=== PATIENT | male | born 1985 | race Hispanic/Latino ===

== ENCOUNTER 2019-04-08 13:21 | Emergency (ER) | payer SELFPAY ==
[2019-04-08 13:36] VITALS: BP 131/86
--- NOTE | 2019-04-08 14:17 | Emergency Department Report ---
Minor Respiratory - HPI Chief Complaint: Sore Throat Stated Complaint: THROAT PAIN/KINGA Time Seen by Provider: 04/08/19 14:08 Duration: 3 Days Pain Location: Throat Severity: mild Minor Respiratory: Yes Rhinorrhea, Yes Sore Throat, Yes Able to Tolerate Fluids, No Ear Pain, No Cough, No Sick Contacts, No Hemoptysis, No Chest Pain, No Shortness of Breath, No Fever Other History: Mr. Montaño is 33 yo male with hx of seaesonal allergies and hepatitis C who presents with sore throat and swollen lymph node on right. Has been claritin for one year without relief. Has had nasal congestion. Sore throat for a few days. ED Review of Systems ROS: Stated complaint: THROAT PAIN/KINGA Other details as noted in HPI Constitutional: denies: fever, malaise ENT: throat pain, congestion Respiratory: denies: cough, shortness of breath Cardiovascular: denies: as per HPI ED Past Medical Hx - Past Medical History Previous Medical History?: Yes Additional medical history: Hep C - Surgical History Past Surgical History?: No - Social History Smoking Status: Never Smoker Substance Use Type: None - Medications Home Medications: Home Medications Medication Instructions Recorded Confirmed Last Taken Type Amoxicillin [Amoxicillin TAB] 875 mg PO BID 10 Days #20 tablet 04/08/19 Unknown Rx Fluticasone [Flonase] 1 spray NS QDAY 30 Days #1 bottle 04/08/19 Unknown Rx Minor Respiratory Exam - Exam General: Vital signs noted. No distress. Alert and acting appropriately. HEENT: Yes Pharyngeal Erythema (slightly edematous), Yes Moist Mucous Membranes, Yes Rhinorrhea, No Pharyngeal Exudates, No Conjuctival Injection Neck: Yes Adenopathy, Yes Supple Lungs: Yes Good Air Exchange, No Wheezes, No Ronchi, No Stridor, No Cough, No Labored Respirations, No Retractions, No Use of Accessory Muscles, No Other Abnormal Lung Sounds Heart: Yes Regular, No Murmur Abdomen: Yes Normal Bowel Sounds, No Tenderness, No Peritoneal Signs Skin: No Rash, No Edema Neurologic: Alert and oriented, no deficits. Musculoskeletal: Unremarkable. ED Course Vital Signs 04/08/19 13:34 Temperature 98.1 F Pulse Rate 98 H Respiratory 16 Rate Blood Pressure 131/86 O2 Sat by Pulse 98 Oximetry ED Medical Decision Making - Medical Decision Making Acute pharyngitis, differential diagnosis includes viral viral versus bacterial infection versus complication of seasonal allergies. Prescriptions: Amoxicillin and Flonase. Critical care attestation.: If time is entered above; I have spent that time in minutes in the direct care of this critically ill patient, excluding procedure time. ED Disposition Clinical Impression: Acute pharyngitis Disposition: DC- TO HOME OR SELFCARE Is pt being admited?: No Does the pt Need Aspirin: No Condition: Stable Instructions: Pharyngitis (ED) Prescriptions: Amoxicillin [Amoxicillin TAB] 875 mg PO BID 10 Days #20 tablet Fluticasone [Flonase] 1 spray NS QDAY 30 Days #1 bottle Referrals: [facility] [Outside] - 3-5 Days
== END 2019-04-08 14:40 | disposition home or self-care (01) ==
LOC: ED 13:21
DX: J02.9 Acute pharyngitis, unspecified (principal); Z86.19 Personal history of other infectious and parasitic diseases

== ENCOUNTER 2019-04-17 22:33 | Emergency (ER) | payer OTHER ==
--- NOTE | 2019-04-17 22:41 | Emergency Department Report ---
Blank Doc - Documentation Documentation: This is a 33-year-old male that presents with abdominal pain and blood in stool. Also stated has upper back pain from heavy lifting at work. This initial assessment/diagnostic orders/clinical plan/treatment(s) is/are subject to change based on patient's health status, clinical progression and re- assessment by fellow clinical providers in the ED. Further treatment and workup at subsequent clinical providers discretion. Patient/guardians urged not to elope from the ED as their condition may be serious if not clinically assessed and managed. Initial orders include: 1- Patient sent to [facility] for further evaluation and treatment 2- labs 3- UA
[2019-04-17 23:05] LABS: Basophils # (Auto) 0.1 K/mm3 (0.0-0.1); Basophils % (Auto) 1.4 % (0.0-1.8); Eosinophils % (Auto) 0.1 % (0.0-4.3); Hematocrit 40.8 % (35.5-45.6); Hemoglobin 14.2 gm/dl (11.8-15.2); Lymphocytes # (Auto) 0.6 K/mm3 (1.2-5.4); Lymphocytes % (Auto) 10.7 % (13.4-35.0); Mean Corpuscular HGB Conc 35 % (32-34); Mean Corpuscular Volume 89 fl (84-94); Monocytes # (Auto) 0.6 K/mm3 (0.0-0.8); Monocytes % (Auto) 11.3 % (0.0-7.3); Platelet Count 210 K/mm3 (140-440); Red Cell Distribution Width 13.3 % (13.2-15.2)
[2019-04-17 23:23] LABS: Alanine Aminotransferase 47 units/L (7-56); Albumin 4.3 g/dL (3.9-5); BUN/Creatinine Ratio 14; Blood Urea Nitrogen 13 mg/dL (9-20); Calcium 8.9 mg/dL (8.4-10.2); Hemolysis Index 23
[2019-04-18 00:39] LABS: Bilirubin,Urine NEG (Negative); Blood,Urine SM (Negative); Color,Urine Straw (Yellow); Protein,Urine <15 mg/dL mg/dL (Negative); Urobilinogen,Urine < 2.0 mg/dL (<2.0); WBC,Urine < 1.0 /HPF (0.0-6.0)
[2019-04-18] MEDS ORDERED: ZOFRAN IV ONE (01:00)
[2019-04-18] MEDS ORDERED: MORPHINE IV ONE (01:00)
[2019-04-18] MEDS ORDERED: NACL 0.9% 1000 ML 2,000 ML IV ONE (01:00)
[2019-04-18] MEDS ORDERED: TYLENOL PO ONE (01:01)
--- NOTE | 2019-04-18 01:02 | Emergency Department Report ---
ED General Adult HPI - General Chief complaint: GI Bleed Stated complaint: BACK PAIN/RECTAL BLEEDING Time Seen by Provider: 04/17/19 22:39 Source: patient, RN notes reviewed, old records reviewed Mode of arrival: Ambulatory Limitations: No Limitations - History of Present Illness Initial comments: This is a 34-year-old gentleman. The patient is not known to this provider previously. The patient does not have a local primary care doctor. He denies c hronic medical conditions. Patient was reportedly incarcerated, and reports being released from incarceration a few weeks ago. He reports shortly after that, he had a a few high risk unprotected sexual encounters, reportedly with males and females. He presented approximately 10 days ago for presumed pharyngitis, and was treated empirically. He denies intravenous drug use. Today, the patient presents to the emergency room with a number of complaints. He complains of nontraumatic posterior mid thoracic pain that radiates around to the front. He does not have chest pain. He also describes nontraumatic left posterior thoracic pain. He also describes upper back pain. He also complains of fever, and bright red blood per rectum. He makes no complaint of headache, neck pain, shortness of breath, syncope, ocular discharge, arthritis, dysuria. He has no dyschezia. He requests to be evaluated for HIV. A rectal bleeding started today, it is constant, it is painless, it does not radiate anywhere, he does not have exacerbating or relieving factors. Thoracic pain started today, radiates to the front, increases with palpation and it decreases with rest. Described as sharp, aching, throbbing in nature. -: Gradual Location: back Radiation: abdomen, other Quality: other Consistency: other Improves with: other Worsens with: other Associated Symptoms: other - Related Data Previous Rx's Medication Instructions Recorded Last Taken Type Amoxicillin [Amoxicillin TAB] 875 mg PO BID 10 Days #20 tablet 04/08/19 Unknown Rx Fluticasone [Flonase] 1 spray NS QDAY 30 Days #1 bottle 04/08/19 Unknown Rx Acetaminophen [Non-Aspirin Extra 500 mg PO Q6HR PRN #30 tablet 04/18/19 Unknown Rx Strength] Ciprofloxacin HCl [Ciprofloxacin 500 mg PO Q12HR #12 tab 04/18/19 Unknown Rx TAB] Metoclopramide [Reglan] 10 mg PO QID PRN #30 tablet 04/18/19 Unknown Rx metroNIDAZOLE [Flagyl] 500 mg PO Q12HR #18 tab 04/18/19 Unknown Rx Allergies Allergy/AdvReac Type Severity Reaction Status Date / Time No Known Allergies Allergy Verified 04/18/19 04:30 ED Review of Systems ROS: Stated complaint: BACK PAIN/RECTAL BLEEDING Other details as noted in HPI Constitutional: fever, malaise. denies: weakness Eyes: denies: eye discharge ENT: denies: congestion Respiratory: denies: shortness of breath Cardiovascular: denies: chest pain, palpitations Gastrointestinal: abdominal pain, hematochezia. denies: hematemesis, melena Genitourinary: denies: dysuria Musculoskeletal: back pain Skin: denies: lesions Neurological: weakness Psychiatric: anxiety ED Past Medical Hx - Past Medical History Previous Medical History?: Yes Additional medical history: Hep C - Surgical History Past Surgical History?: No - Social History Smoking Status: Never Smoker Substance Use Type: None - Medications Home Medications: Home Medications Medication Instructions Recorded Confirmed Last Taken Type Amoxicillin [Amoxicillin TAB] 875 mg PO BID 10 Days #20 tablet 04/08/19 Unknown Rx Fluticasone [Flonase] 1 spray NS QDAY 30 Days #1 bottle 04/08/19 Unknown Rx Acetaminophen [Non-Aspirin Extra 500 mg PO Q6HR PRN #30 tablet 04/18/19 Unknown Rx Strength] Ciprofloxacin HCl [Ciprofloxacin 500 mg PO Q12HR #12 tab 04/18/19 Unknown Rx TAB] Metoclopramide [Reglan] 10 mg PO QID PRN #30 tablet 04/18/19 Unknown Rx metroNIDAZOLE [Flagyl] 500 mg PO Q12HR #18 tab 04/18/19 Unknown Rx ED Physical Exam - General Limitations: No Limitations General appearance: alert, anxious - Head Head exam: Present: atraumatic, normocephalic - Eye Eye exam: Present: normal appearance, EOMI. Absent: nystagmus - ENT ENT exam: Present: normal exam, normal orophraynx, mucous membranes moist, normal external ear exam, other (patient speaking in full sentences. There is no stridor or dysphonia.) - Neck Neck exam: Present: normal inspection, full ROM. Absent: tenderness, meningismus - Respiratory Respiratory exam: Present: normal lung sounds bilaterally. Absent: respiratory distress, wheezes, rales, rhonchi, stridor, chest wall tenderness - Cardiovascular Cardiovascular Exam: Present: normal rhythm, tachycardia, normal heart sounds. Absent: systolic murmur, diastolic murmur, rubs, gallop - GI/Abdominal GI/Abdominal exam: Present: soft, tenderness, other (there is epigastric t enderness. There is no rebound, guarding or peritoneal signs.). Absent: distended, guarding, rebound, rigid, pulsatile mass - Rectal Rectal exam: Present: normal inspection, normal rectal tone, bloody stool, other (chaperoned by nurse Liyah Bueno) - exam: Present: normal inspection, other (chaperoned by nurse Liyah Bueno) External exam: Present: normal external exam - Extremities Exam Extremities exam: Present: normal inspection, full ROM, other (2+ pulses noted in the bilateral upper, lower extremities. Compartments soft. No long bony tenderness. The pelvis is stable.). Absent: tenderness, pedal edema, joint swelling, calf tenderness - Back Exam Back exam: Present: normal inspection, full ROM. Absent: tenderness, CVA tenderness (R), CVA tenderness (L), paraspinal tenderness, vertebral tenderness - Neurological Exam Neurological exam: Present: alert, oriented X3, other (Extraocular movements intact. Tongue midline. No facial droop. Facial sensation intact to light touch in the V1, V2, V3 distribution bilaterally. 5 and 5 strength in 4 extrem ities.. Sensation is intact to light touch in 4 extremities.). Absent: motor sensory deficit - Psychiatric Psychiatric exam: Present: anxious - Skin Skin exam: Present: warm, dry, intact, normal color. Absent: rash ED Course Vital Signs 04/17/19 04/18/19 04/18/19 22:43 01:00 01:31 Temperature 100.3 F H Pulse Rate 122 H Respiratory 18 Rate Blood Pressure 133/95 131/88 141/81 Blood Pressure [Left] O2 Sat by Pulse 99 99 98 Oximetry 04/18/19 04/18/19 04/18/19 01:48 02:13 02:31 Temperature 102.7 F H Pulse Rate 105 H 99 H 102 H Respiratory 18 16 22 Rate Blood Pressure 129/88 129/88 Blood Pressure 131/88 [Left] O2 Sat by Pulse 99 96 98 Oximetry 04/18/19 04/18/19 04/18/19 02:45 03:00 03:31 Temperature 100.1 F H Pulse Rate 95 H 95 H Respiratory 18 17 Rate Blood Pressure 118/74 118/74 Blood Pressure [Left] O2 Sat by Pulse 97 97 Oximetry 04/18/19 04/18/19 04/18/19 04:00 04:21 04:31 Temperature 98.8 F Pulse Rate 83 81 Respiratory 18 16 Rate Blood Pressure 112/62 112/62 Blood Pressure [Left] O2 Sat by Pulse 99 98 Oximetry 04/18/19 05:00 Temperature Pulse Rate 82 Respiratory 18 Rate Blood Pressure 109/67 Blood Pressure [Left] O2 Sat by Pulse 99 Oximetry - Reevaluation(s) Reevaluation #1: 04/18/19 02:03 Differential diagnosis, including not limited to: Pneumonia, tuberculosis, pulmonary embolus, colitis, diverticulitis, proctitis, acute HIV syndrome Assessment and plan: 33-year-old gentleman with fever, tachycardia, back pain that radiates to the front, high risk sexual encounters. He requests screening for HIV. He has provided informed consent for HIV screening. I think tuberculosis is unlikely. However, given that he complains of posterior thoracic pain, lateral thoracic pain, epigastric abdominal pain, is tachycardic and febrile, we will obtain CT scan of the chest, abdomen, pelvis. Rectal exam demonstrates blood, however, it is only in trace amounts. We will treat the patient's symptoms. We will reassess once his data points have resulted. 04/18/19 02:05 At this point do not clinically suspect gonococcal pharyngitis or proctitis based on exam as there are no exudates or discharge, but rectal and pharyngeal cultures were sent nevertheless. Extensive discussion had with patient regarding importance of safe sex practices, and benefits of pre-exposure prophylaxis, which he may pursue with an outpatient primary care physician. Reevaluation #2: 04/18/19 04:28 The patient is reassessed. The patient has been in the ER for around 6 hours. He is markedly improved. Tachycardia resolved. Fever resolved. No rectal bleeding while here in the emergency department. CT scan of the chest negative for acute disease. CT scan of the abdomen pelvis negative for acute disease. Patiently covered empirically with ceftriaxone and azithromycin. Extensive discussion had with patient regarding need for outpatient follow-up. We will start him on empiric ciprofloxacin, Flagyl, discharged with pain medication, nausea medication, instructions to follow up with outpatient primary care, health Department, and gastroenterology. The patient is suitable for a trial of oral outpatient antibiotic management at this point in time. ED Medical Decision Making - Lab Data Result diagrams: 04/17/19 22:54 04/17/19 22:54 Vital Signs 04/17/19 04/18/19 22:43 01:48 Temperature 100.3 F H 102.7 F H Pulse Rate 122 H 105 H Respiratory 18 18 Rate Blood Pressure 133/95 Blood Pressure 131/88 [Left] O2 Sat by Pulse 99 99 Oximetry Lab Results 04/17/19 04/17/19 04/17/19 Range/Units 22:54 22:54 22:54 WBC 5.6 (4.5-11.0) K/mm3 RBC 4.60 (3.65-5.03) M/mm3 Hgb 14.2 (11.8-15.2) gm/dl Hct 40.8 (35.5-45.6) % MCV 89 (84-94) fl MCH 31 (28-32) pg MCHC 35 H (32-34) % RDW 13.3 (13.2-15.2) % Plt Count 210 (140-440) K/mm3 Lymph % (Auto) 10.7 L (13.4-35.0) % Hale % (Auto) 11.3 H (0.0-7.3) % Eos % (Auto) 0.1 (0.0-4.3) % Baso % (Auto) 1.4 (0.0-1.8) % Lymph # 0.6 L (1.2-5.4) K/mm3 Hale # 0.6 (0.0-0.8) K/mm3 Eos # 0.0 (0.0-0.4) K/mm3 Baso # 0.1 (0.0-0.1) K/mm3 Seg Neutrophils % 76.5 H (40.0-70.0) % Seg Neutrophils # 4.3 (1.8-7.7) K/mm3 Sodium 133 L (137-145) mmol/L Potassium 4.0 (3.6-5.0) mmol/L Chloride 92.8 L (98-107) mmol/L Carbon Dioxide 28 (22-30) mmol/L Anion Gap 16 mmol/L BUN 13 (9-20) mg/dL Creatinine 0.9 (0.8-1.5) mg/dL Estimated GFR > 60 ml/min BUN/Creatinine Ratio 14 % Glucose 106 H (75-100) mg/dL Lactic Acid 1.30 (0.7-2.0) mmol/L Calcium 8.9 (8.4-10.2) mg/dL Total Bilirubin 0.20 (0.1-1.2) mg/dL AST 40 (5-40) units/L ALT 47 (7-56) units/L Alkaline Phosphatase 90 (35-129) units/L Total Protein 7.5 (6.3-8.2) g/dL Albumin 4.3 (3.9-5) g/dL Albumin/Globulin Ratio 1.3 % Lipase 40 (13-60) units/L Urine Color (Yellow) Urine Turbidity (Clear) Urine pH (5.0-7.0) Ur Specific [place] (1.003-1.030) Urine Protein (Negative) mg/dL Urine Glucose (UA) (Negative) mg/dL Urine Ketones (Negative) mg/dL Urine Blood (Negative) Urine Nitrite (Negative) Urine Bilirubin (Negative) Urine Urobilinogen (<2.0) mg/dL Ur Leukocyte Esterase (Negative) Urine WBC (Auto) (0.0-6.0) /HPF Urine RBC (Auto) (0.0-6.0) /HPF 04/17/19 Range/Units 23:30 WBC (4.5-11.0) K/mm3 RBC (3.65-5.03) M/mm3 Hgb (11.8-15.2) gm/dl Hct (35.5-45.6) % MCV (84-94) fl MCH (28-32) pg MCHC (32-34) % RDW (13.2-15.2) % Plt Count (140-440) K/mm3 Lymph % (Auto) (13.4-35.0) % Hale % (Auto) (0.0-7.3) % Eos % (Auto) (0.0-4.3) % Baso % (Auto) (0.0-1.8) % Lymph # (1.2-5.4) K/mm3 Hale # (0.0-0.8) K/mm3 Eos # (0.0-0.4) K/mm3 Baso # (0.0-0.1) K/mm3 Seg Neutrophils % (40.0-70.0) % Seg Neutrophils # (1.8-7.7) K/mm3 Sodium (137-145) mmol/L Potassium (3.6-5.0) mmol/L Chloride (98-107) mmol/L Carbon Dioxide (22-30) mmol/L Anion Gap mmol/L BUN (9-20) mg/dL Creatinine (0.8-1.5) mg/dL Estimated GFR ml/min BUN/Creatinine Ratio % Glucose (75-100) mg/dL Lactic Acid (0.7-2.0) mmol/L Calcium (8.4-10.2) mg/dL Total Bilirubin (0.1-1.2) mg/dL AST (5-40) units/L ALT (7-56) units/L Alkaline Phosphatase (35-129) units/L Total Protein (6.3-8.2) g/dL Albumin (3.9-5) g/dL Albumin/Globulin Ratio % Lipase (13-60) units/L Urine Color Straw (Yellow) Urine Turbidity Clear (Clear) Urine pH 6.0 (5.0-7.0) Ur Specific [place] 1.005 (1.003-1.030) Urine Protein <15 mg/dl (Negative) mg/dL Urine Glucose (UA) Neg (Negative) mg/dL Urine Ketones Neg (Negative) mg/dL Urine Blood Sm (Negative) Urine Nitrite Neg (Negative) Urine Bilirubin Neg (Negative) Urine Urobilinogen < 2.0 (<2.0) mg/dL Ur Leukocyte Esterase Neg (Negative) Urine WBC (Auto) < 1.0 (0.0-6.0) /HPF Urine RBC (Auto) 1.0 (0.0-6.0) /HPF - EKG Data -: EKG Interpreted by [place] EKG shows normal: sinus rhythm Rate: tachycardia - EKG Data 04/18/19 02:06 This is a sinus tachycardia, 104 bpm, normal axis, early repolarization, no complaints of chest pain, this is an abnormal EKG, intervals otherwise unremarkable, EKG is not consistent with ST elevation myocardial infarction. - Radiology Data Radiology results: report reviewed, image reviewed CT scan of the chest is negative for acute disease. CT scan of the abdomen and pelvis is negative for acute disease. Critical care attestation.: If time is entered above; I have spent that time in minutes in the direct care of this critically ill patient, excluding procedure time. ED Disposition Clinical Impression: Acute febrile illness, History of rectal bleeding High risk sexual behavior Qualifiers: High risk sexual behavior type: unspecified Qualified Code(s): Z72.51 - High risk heterosexual behavior Disposition: DC- TO HOME OR SELFCARE Is pt being admited?: No Does the pt Need Aspirin: No Condition: Stable Additional Instructions: Cultures were sent today, and results will be available in the next 3-5 days. Have a primary care doctor contact the medical records department to obtain culture results. Please follow-up with a primary care doctor in 3-4 days for repeat checkup/evaluation. Alternatively, the patient may return to this emergency room for repeat checkup/evaluation, or follow up at an urgent care center for repeat checkup/evaluation. Take the pain medication, nausea medication, antibiotic therapy as directed. Do not consume alcohol while taking these medications. Patient will need to follow up with a independent film maker within the next 2 weeks for repeat checkup/evaluation for history of rectal bleeding. Not following up as recommended may result an undiagnosed cancer, tumor, malignancy. Patient will need to follow-up with an outpatient primary care doctor, or the he alth department for repeat STI screening/testing in 4-8 weeks. Make certain to practice safe sexual practices. Always use a condom or barrier protection Please return to the emergency room right away with projectile vomiting, change in mental status, confusion, inability to tolerate liquid feeds, new, worsening or different symptoms not present on the initial emergency room evaluation. [facility] is a local gastroenterology practice. [facility] is a local medical clinic. [facility] is a local medical clinic. Prescriptions: Ciprofloxacin HCl [Ciprofloxacin TAB] 500 mg PO Q12HR #12 tab metroNIDAZOLE [Flagyl] 500 mg PO Q12HR #18 tab Acetaminophen [Non-Aspirin Extra Strength] 500 mg PO Q6HR PRN #30 tablet PRN Reason: Pain , Severe (7-10) Metoclopramide [Reglan] 10 mg PO QID PRN #30 tablet PRN Reason: Nausea Referrals: [facility] [Outside] - 3-5 Days [facility] [Provider Group] - 3-5 Days [facility] [Provider Group] - 3-5 Days [facility] [Provider Group] - 3-5 Days Forms: Accompanied Note
--- NOTE | 2019-04-18 04:08 | Cat Scan Report ---
PROCEDURE: CT ANGIO CHEST TECHNIQUE: Computerized tomographic angiography of the chest was performed after the IV injection of iodinated nonionic contrast including image processing. The image data was postprocessed using 2-di mensional multiplanar reformatted (MPR) and 3-dimensional (MIP and/or volume rendered) techniques. Au tomated exposure control, adjustment of mA and/or kV according to patient size, or iterative reconstr uction dose optimization techniques were utilized. CT DOSE LENGTH PRODUCT: mGycm HISTORY: back pain thoracic pain fever tachy, radiates to f COMPARISONS: None . FINDINGS: Heart and pericardium: Normal. Thoracic aorta: There is no thoracic aortic aneurysm or dissection.. Pulmonary vasculature: There is no pulmonary embolism.. Lymph nodes: No enlarged thoracic lymph nodes. Lungs: Lungs are expanded and clear. There are no infiltrates. Pleural space: No effusion, thickening, or pneumothorax. Musculoskeletal structures: No significant abnormality. Upper abdominal structures: No significant abnormality. IMPRESSION: There is no pulmonary embolism. . This document is electronically signed by Josse Dhaliwal MD., April 18 2019 04:06:58 AM ET
--- NOTE | 2019-04-18 04:13 | Cat Scan Report ---
PROCEDURE: CT ABDOMEN PELVIS W CON TECHNIQUE: Computerized axial tomography of the abdomen and pelvis was performed after the IV inject ion of iodinated nonionic contrast. CT DOSE LENGTH PRODUCT: mGycm HISTORY: abd pain fever rectal bleed COMPARISONS: None . FINDINGS: Visualized lower thorax: No significant abnormality. Liver: Normal size and attenuation. Spleen: Normal size and attenuation. Gallbladder and biliary system: Normal. Pancreas: Normal. Adrenals: Normal. Kidneys: Normal. GI tract: There is no bowel obstruction, colitis or enteritis. The appendix is normal.. Lymph nodes and mesentery: Normal. Vasculature: Normal.. Bladder: Normal. Reproductive organs: Normal. Peritoneum: There is no ascites, free air, abscess or adenopathy.. Musculoskeletal structures: No significant abnormality. Other: None. IMPRESSION: There is no acute intra-abdominal abnormality.. This document is electronically signed by Josse Dhaliwal MD., April 18 2019 04:11:42 AM ET
[2019-04-18] MEDS ORDERED: ZITHROMAX PO ONE (04:25)
[2019-04-18] MEDS ORDERED: ROCEPHIN 250 MG in NACL 0.9% 50 ML IV STA (04:26)
[2019-04-18 05:35] VITALS: BP 109/67
== END 2019-04-18 05:38 | disposition home or self-care (01) ==
LOC: ED 22:33
DX: K62.5 Hemorrhage of anus and rectum (principal); Z72.51 High risk heterosexual behavior
CPT/HCPCS: 36415; 71275; 74177; 80053; 81001; 82140; 82271; 82550; 83690; 83735; 85025; 85379; 87591; 87806; 93005; 93010; 96365; 96375; 99285; J0696; J2270; J2405; J7030; Q9967

== ENCOUNTER 2019-04-21 11:50 | Emergency (ER) | payer OTHER ==
--- NOTE | 2019-04-21 12:37 | Event Note ---
ED Screening Note Date of service: 04/21/19 Time: 12:33 ED Screening Note: 33 y/o male c/o diarrhea with blood abd pain . Was here earlier. This initial assessment/diagnostic orders/clinical plan/treatment(s) is/are subject to change based on patients health status, clinical progression and re- assessment by fellow clinical providers in the ED. Further treatment and workup at subsequent clinical providers discretion. Patient/guardian urged not to elope from the ED as their condition may be serious if not clinically assessed and managed. Initial orders include:
[2019-04-21] MEDS ORDERED: NACL 0.9% 1000 ML 1,000 ML IV ONE (13:24)
[2019-04-21] MEDS ORDERED: ZOFRAN IV ONE (13:24)
[2019-04-21] MEDS ORDERED: MORPHINE IV ONE (13:24)
[2019-04-21 13:43] LABS: Bilirubin,Urine NEG (Negative); Blood,Urine NEG (Negative); Color,Urine Yellow (Yellow); Protein,Urine <15 mg/dL mg/dL (Negative); Urobilinogen,Urine < 2.0 mg/dL (<2.0)
[2019-04-21 13:47] LABS: Basophils % (Auto) 0.8 % (0.0-1.8); Eosinophils % (Auto) 0.5 % (0.0-4.3); Hematocrit 43.1 % (35.5-45.6); Hemoglobin 14.6 gm/dl (11.8-15.2); Lymphocytes # (Auto) 1.5 K/mm3 (1.2-5.4); Lymphocytes % (Auto) 35.7 % (13.4-35.0); Mean Corpuscular HGB Conc 34 % (32-34); Mean Corpuscular Volume 89 fl (84-94); Monocytes # (Auto) 0.6 K/mm3 (0.0-0.8); Monocytes % (Auto) 14.8 % (0.0-7.3); Platelet Count 178 K/mm3 (140-440); Red Blood Count 4.83 M/mm3 (3.65-5.03); Red Cell Distribution Width 13.5 % (13.2-15.2)
[2019-04-21 14:02] LABS: Alanine Aminotransferase 26 units/L (7-56); Albumin 3.8 g/dL (3.9-5); BUN/Creatinine Ratio 6; Blood Urea Nitrogen 5 mg/dL (9-20); Calcium 8.9 mg/dL (8.4-10.2); Hemolysis Index 22
--- NOTE | 2019-04-21 14:32 | Emergency Department Report ---
ED GI Bleed HPI - General Chief complaint: Nausea/Vomiting/Diarrhea Stated complaint: DIARRHEA/FEVER Time Seen by Provider: 04/21/19 13:18 Source: patient Mode of arrival: Ambulatory Limitations: No Limitations - History of Present Illness Initial comments: This is a 33-year-old male nontoxic, well nourished in appearance, no acute signs of distress presents to the ED with c/o of nausea and vomiting and abdominal pain 5 days. Patient also stated has diarrhea with mixed blood. Patient describes vomiting as food content and yellow gastric acid. Patient describes abdominal pain as cramping and aching with level of 3/10 diffuse. Patient denies chest pain, short of breath, fever, chills, headache, stiff neck, numbness or tingling. Patient denies any constipation. Patient denies any recent travels. Patient stated allergies to metoclopramide. Denies significant PMH. Patient also stated that he was seen in the ER 5 days ago but denies fol lowing up with a form setter supervisor. Patient also stated is currently taking Cipro and Flagyl that was prescribed to him during previous visit. -: days(s) (5) Location: diffuse Radiation: none Severity scale (0 -10): 3 Quality: cramping Consistency: constant Improves with: none Worsens with: none Associated Symptoms: abdominal pain, nausea, vomiting. denies: epistaxis, f ever/chills, headaches, loss of appetite, malaise, easy bruising, rash, other bleeding, shortness of breath, syncope, weakness Treatments Prior to Arrival: none - Related Data Previous Rx's Medication Instructions Recorded Last Taken Type Amoxicillin [Amoxicillin TAB] 875 mg PO BID 10 Days #20 tablet 04/08/19 Unknown Rx Fluticasone [Flonase] 1 spray NS QDAY 30 Days #1 bottle 04/08/19 Unknown Rx Acetaminophen [Non-Aspirin Extra 500 mg PO Q6HR PRN #30 tablet 04/18/19 Unknown Rx Strength] Ciprofloxacin HCl [Ciprofloxacin 500 mg PO Q12HR #12 tab 04/18/19 Unknown Rx TAB] Metoclopramide [Reglan] 10 mg PO QID PRN #30 tablet 04/18/19 Unknown Rx metroNIDAZOLE [Flagyl] 500 mg PO Q12HR #18 tab 04/18/19 Unknown Rx Acetaminophen/Codeine [Tylenol 1 tab PO Q6H PRN #12 tab 04/21/19 Unknown Rx /Codeine # 3 tab] Ondansetron [Zofran Odt] 4 mg PO Q8HR PRN #20 tab.rapdis 04/21/19 Unknown Rx Allergies Allergy/AdvReac Type Severity Reaction Status Date / Time metoclopramide [From Reglan] Allergy Unknown Verified 04/21/19 12:26 ED Review of Systems ROS: Stated complaint: DIARRHEA/FEVER Other details as noted in HPI Constitutional: denies: chills, fever Eyes: denies: eye pain, eye discharge, vision change ENT: denies: ear pain, throat pain Respiratory: denies: cough, shortness of breath, wheezing Cardiovascular: denies: chest pain, palpitations Endocrine: no symptoms reported Gastrointestinal: abdominal pain, nausea, vomiting, diarrhea, hematochezia. denies: constipation, hematemesis, melena Genitourinary: denies: urgency, dysuria Musculoskeletal: denies: back pain, joint swelling, arthralgia Skin: denies: rash, lesions Neurological: denies: headache, weakness, paresthesias Psychiatric: denies: anxiety, depression Hematological/Lymphatic: denies: easy bleeding, easy bruising ED Past Medical Hx - Past Medical History Additional medical history: Hep C - Social History Smoking Status: Current Every Day Smoker Substance Use Type: None - Medications Home Medications: Home Medications Medication Instructions Recorded Confirmed Last Taken Type Amoxicillin [Amoxicillin TAB] 875 mg PO BID 10 Days #20 tablet 04/08/19 Unknown Rx Fluticasone [Flonase] 1 spray NS QDAY 30 Days #1 bottle 04/08/19 Unknown Rx Acetaminophen [Non-Aspirin Extra 500 mg PO Q6HR PRN #30 tablet 04/18/19 Unknown Rx Strength] Ciprofloxacin HCl [Ciprofloxacin 500 mg PO Q12HR #12 tab 04/18/19 Unknown Rx TAB] Metoclopramide [Reglan] 10 mg PO QID PRN #30 tablet 04/18/19 Unknown Rx metroNIDAZOLE [Flagyl] 500 mg PO Q12HR #18 tab 04/18/19 Unknown Rx Acetaminophen/Codeine [Tylenol 1 tab PO Q6H PRN #12 tab 04/21/19 Unknown Rx /Codeine # 3 tab] Ondansetron [Zofran Odt] 4 mg PO Q8HR PRN #20 tab.rapdis 04/21/19 Unknown Rx ED Physical Exam - General Limitations: No Limitations General appearance: alert, in no apparent distress - Head Head exam: Present: atraumatic, normocephalic - Eye Eye exam: Present: normal appearance - Neck Neck exam: Present: normal inspection, full ROM. Absent: tenderness, meningismus, lymphadenopathy - Respiratory Respiratory exam: Present: normal lung sounds bilaterally. Absent: respiratory distress, wheezes, rales, rhonchi, stridor, chest wall tenderness, accessory muscle use, decreased breath sounds, prolonged expiratory - Cardiovascular Cardiovascular Exam: Present: regular rate, normal rhythm, normal heart sounds. Absent: bradycardia, tachycardia, irregular rhythm, systolic murmur, diastolic murmur, rubs, gallop - GI/Abdominal GI/Abdominal exam: Present: soft, normal bowel sounds. 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 Absent: black stool, bloody stool, fecal impaction, hemorrhoids, mass, tenderness, prostate tenderness, prostate enlargement - Extremities Exam Extremities exam: Present: normal inspection, full ROM, normal capillary refill. Absent: tenderness - Back Exam Back exam: Present: normal inspection, full ROM. Absent: tenderness, CVA tenderness (R), CVA tenderness (L), muscle spasm, paraspinal tenderness, vertebral tenderness, rash noted - Neurological Exam Neurological exam: Present: alert, oriented X3, normal gait - Psychiatric Psychiatric exam: Present: normal affect, normal mood - Skin Skin exam: Present: warm, dry, intact, normal color. Absent: rash ED Course Vital Signs 04/21/19 04/21/19 04/21/19 12:20 13:40 14:02 Temperature 97.2 F L Pulse Rate 90 Respiratory 18 16 16 Rate Blood Pressure 120/75 Blood Pressure [Left] O2 Sat by Pulse 100 Oximetry 04/21/19 17:35 Temperature 98.6 F Pulse Rate 66 Respiratory 18 Rate Blood Pressure Blood Pressure 102/52 [Left] O2 Sat by Pulse 99 Oximetry - Reevaluation(s) Reevaluation #1: 04/21/19 14:34 Patient is speaking in full sentences with no signs of distress noted. - Consultations Consultation #1: 04/21/19 15:59 Patient has been consulted with Lori Barron about patient history, physical exam, and labs/CT results and agrees to ED plan of care and discharge plan of care. ED Medical Decision Making - Lab Data Result diagrams: 04/21/19 13:29 04/21/19 13:29 - Medical Decision Making This is a 33-year-old male that presents with abdominal pain, nausea vomiting, and blood in stool. Condition stable was examined by me. There was a normal rectal exam noted. Labs obtained and are unremarkable with normal H&H. Urine is unremarkable. CT scan of abdomen has been obtained with contrast and dictated by radiologist within normal limits. Patient is notified of the CT results with her questions noted by the patient. Patient was instructed to continue taking ciprofloxacin and Flagyl Was prescribed in the previous visit. Vital signs are unremarkable. Patient was given strict instructions that he must follow-up with a form setter supervisor for a colonoscopy, as well as Urologist for abnormal CT results. Patient is stable to be discharged at this time. Patient was instructed to Follow-up with a primary care/form setter supervisor doctor in 3-5 days or if symptoms worsen and continue return to emergency room as soon as possible. At time of discharge, the patient does not seem toxic or ill in appearance. No acute signs of distress noted. Patient agrees to discharge treatment plan of care. No further questions noted by the patient. Critical care attestation.: If time is entered above; I have spent that time in minutes in the direct care of this critically ill patient, excluding procedure time. ED Disposition Clinical Impression: Nausea vomiting and diarrhea, Hematochezia Abdominal pain Qualifiers: Abdominal location: generalized Qualified Code(s): R10.84 - Generalized abdominal pain Disposition: -01 TO HOME OR SELFCARE Is pt being admited?: No Does the pt Need Aspirin: No Condition: Stable Instructions: Acute Nausea and Vomiting (ED), Abdominal Pain (ED) Additional Instructions: Follow-up with a primary care/form setter supervisor doctor in 3-5 days or if symptoms worsen and continue return to emergency room as soon as possible. Also, as instructed and directed to you in the ED, follow-up with a Urologist in 3-[address] results. Continue taking antibiotic that was prescribed to you during your previous visit. Prescriptions: Acetaminophen/Codeine [Tylenol /Codeine # 3 tab] 1 tab PO Q6H PRN #12 tab PRN Reason: Pain , Severe (7-10) Ondansetron [Zofran Odt] 4 mg PO Q8HR PRN #20 tab.rapdis PRN Reason: Nausea Referrals: JAUN DURANT MD [Primary Care Provider] - 3-5 Days PRIMARY [facility]ARE, [Referring] - 3-5 Days KSENIA ONOFRE MD [Staff Physician] - 3-5 Days [facility] [Provider Group] - 3-5 Days [facility] [Outside] - 3-5 Days Forms: Work/School Release Form(ED)
--- NOTE | 2019-04-21 15:53 | Cat Scan Report ---
PROCEDURE: CT ABDOMEN PELVIS W CON TECHNIQUE: Computerized axial tomography of the abdomen and pelvis was performed after the IV inject ion of iodinated nonionic contrast. CT DOSE LENGTH PRODUCT: 1558.9 mGycm HISTORY: abd pain with n/v COMPARISONS: Prior CT scan abdomen and pelvis 04/18/2019 . FINDINGS: Lower Lung cortes: Minimal dependent atelectasis otherwise clear. Upper Abdomen: Gallbladder showed no abnormalities. The liver is unremarkable. The adrenal glands, p ancreas and spleen are unremarkable. Kidneys, Ureters and Urinary bladder: Kidneys and ureters show no adenopathy. No renal or ureteral c alculi are seen. There is no hydronephrosis. Urinary bladder is only partially filled. Bladder wall i s prominent. Urinary bladder is incompletely distended. The prominence may be due to lack of distenti on. Cystitis is not entirely excluded. Correlation with urinalysis suggested. Urinary bladder otherwi se is unremarkable. Retroperitoneum: Abdominal aorta appears normal. Nonspecific subcentimeter lymph nodes are seen in the retroperitoneum. No pathologically enlarged ly mph nodes are identified. Bowel: No focal abnormalities are identified. No evidence of bowel obstruction or ascites. There is no free intraperitoneal gas. Normal-appearing appendix is seen in the right lower quadrant. Reproductive organs: Prostate gland does not appear to be enlarged. There is increased density seen in the corpus cavernosum and to a lesser degree corpus spongiosum. Other: No acute bone abnormalities are identified. IMPRESSION: There is abnormal diffuse increased density seen in the corpus cavernosum and to a lesser degree darrius us spongiosum of the penis. Consider thrombosis, atherosclerotic change.. Urology consultation recomm ended. Glover of the urinary bladder appears mildly thickened. This may be due to lack of distention. I canno t exclude cystitis. No other abnormalities are seen. This document is electronically signed by Zaid Beckman MD., April 21 2019 03:51:34 PM ET
[2019-04-21 17:36] VITALS: BP 102/52
== END 2019-04-21 17:58 | disposition home or self-care (01) ==
LOC: ED 11:50
DX: R11.2 Nausea with vomiting, unspecified (principal); K92.1 Melena; F17.200 Nicotine dependence, unspecified, uncomplicated; Z86.19 Personal history of other infectious and parasitic diseases; Z88.5 Allergy status to narcotic agent; Z79.899 Other long term (current) drug therapy
CPT/HCPCS: 36415; 74177; 80053; 81001; 82271; 83690; 85025; 96361; 96374; 96375; 99284; J2270; J2405; J7030; Q9967

== ENCOUNTER 2019-05-14 16:01 | Emergency (ER) | payer OTHER ==
[2019-05-14 16:51] VITALS: BP 134/76
--- NOTE | 2019-05-14 16:53 | Emergency Department Report ---
Blank Doc - Documentation Documentation: 33 y o male presnts to ed cc of left hand/wrist pain worsened last night states at work may have lifted a pallet wrongly states pain worsened with movement and relieved a bit with his wrist brace
--- NOTE | 2019-05-14 17:45 | XRay Report ---
2 views of the left wrist INDICATION / CLINICAL INFORMATION: Left wrist pain. COMPARISON: None available. FINDINGS: BONES/JOINT(S): No acute fracture or subluxation. No significant degenerative changes. SOFT TISSUES: No significant abnormality. ADDITIONAL FINDINGS: None. Signer Name: Jacinto Duggan MD Signed: 05/14/2019 5:40 PM Workstation Name: [id number]
[2019-05-14] MEDS ORDERED: TYLENOL PO ONE (19:21)
[2019-05-14] MEDS ORDERED: ULTRAM PO ONE (19:21)
[2019-05-14] MEDS ORDERED: ULTRAM ONE (19:24)
[2019-05-14] MEDS ORDERED: TYLENOL ONE (19:24)
--- NOTE | 2019-05-14 19:30 | Emergency Department Report ---
ED Upper Extremity Inj HPI - General Chief Complaint: Extremity Injury, Upper Stated Complaint: LT ARM INJURY Time Seen by Provider: 05/14/19 16:50 Source: patient Mode of arrival: Ambulatory Limitations: No Limitations - History of Present Illness Initial Comments: Patient is a 33-year-old male with a normal past medical history presents today due to complaint of acute onset persistent severe left wrist pain after he accidentally lifted a heavy object over 20 hours ago. Patient states that the pain has been worsening in the last 8 hours and that he is unable to perform any activities or motion with the left hand and left wrist. Patient denies traumatic injury, dizziness, fall, numbness and tingling or weakness of the left hand or left wrist, left shoulder pain and chest pain or neck pain. MD Complaint: Injury to:: left, wrist -: Sudden, hour(s) (20) Other Extremity Injury: Wrist: Left (left wrist pain) Other Injuries: none Place: work Severity scale (0 -10): 8 Improves With: rest Worsens With: movement of extremity Context: injury, other (heavy lifting) Associated Symptoms: denies other symptoms. denies: weakness, numbness, neck pain, suspects foreign body, nausea/vomiting, heard/felt popping sensat Treatments Prior to Arrival: NSAIDS - Related Data Previous Rx's Medication Instructions Recorded Last Taken Type Amoxicillin [Amoxicillin TAB] 875 mg PO BID 10 Days #20 tablet 04/08/19 Unknown Rx Fluticasone [Flonase] 1 spray NS QDAY 30 Days #1 bottle 04/08/19 Unknown Rx Acetaminophen [Non-Aspirin Extra 500 mg PO Q6HR PRN #30 tablet 04/18/19 Unknown Rx Strength] Ciprofloxacin HCl [Ciprofloxacin 500 mg PO Q12HR #12 tab 04/18/19 Unknown Rx TAB] Metoclopramide [Reglan] 10 mg PO QID PRN #30 tablet 04/18/19 Unknown Rx metroNIDAZOLE [Flagyl] 500 mg PO Q12HR #18 tab 04/18/19 Unknown Rx Acetaminophen/Codeine [Tylenol 1 tab PO Q6H PRN #12 tab 04/21/19 Unknown Rx /Codeine # 3 tab] Ondansetron [Zofran Odt] 4 mg PO Q8HR PRN #20 tab.rapdis 04/21/19 Unknown Rx Ibuprofen [Motrin] 600 mg PO Q8H PRN #20 tablet 05/14/19 Unknown Rx tiZANidine [Zanaflex 4mg TAB] 4 mg PO Q8H #15 tablet 05/14/19 Unknown Rx traMADol [Ultram] 50 mg PO Q6HR PRN #15 tablet 05/14/19 Unknown Rx Allergies Allergy/AdvReac Type Severity Reaction Status Date / Time metoclopramide [From Reglan] Allergy Unknown Verified 04/21/19 12:26 ED Review of Systems ROS: Stated complaint: LT ARM INJURY Other details as noted in HPI Constitutional: denies: chills, fever Eyes: denies: eye pain, eye discharge, vision change ENT: denies: ear pain, throat pain Respiratory: denies: cough, shortness of breath, wheezing Cardiovascular: denies: chest pain, palpitations Endocrine: no symptoms reported Gastrointestinal: denies: abdominal pain, nausea, diarrhea Genitourinary: denies: urgency, dysuria Musculoskeletal: arthralgia (left wrist pain). denies: back pain, joint swelling Skin: denies: rash, lesions Neurological: denies: headache, weakness, paresthesias Psychiatric: denies: anxiety, depression Hematological/Lymphatic: denies: easy bleeding, easy bruising ED Past Medical Hx - Past Medical History Previous Medical History?: Yes Additional medical history: Hep C - Surgical History Past Surgical History?: No - Social History Smoking Status: Current Some Day Smoker Substance Use Type: None - Medications Home Medications: Home Medications Medication Instructions Recorded Confirmed Last Taken Type Amoxicillin [Amoxicillin TAB] 875 mg PO BID 10 Days #20 tablet 04/08/19 Unknown Rx Fluticasone [Flonase] 1 spray NS QDAY 30 Days #1 bottle 04/08/19 Unknown Rx Acetaminophen [Non-Aspirin Extra 500 mg PO Q6HR PRN #30 tablet 04/18/19 Unknown Rx Strength] Ciprofloxacin HCl [Ciprofloxacin 500 mg PO Q12HR #12 tab 04/18/19 Unknown Rx TAB] Metoclopramide [Reglan] 10 mg PO QID PRN #30 tablet 04/18/19 Unknown Rx metroNIDAZOLE [Flagyl] 500 mg PO Q12HR #18 tab 04/18/19 Unknown Rx Acetaminophen/Codeine [Tylenol 1 tab PO Q6H PRN #12 tab 04/21/19 Unknown Rx /Codeine # 3 tab] Ondansetron [Zofran Odt] 4 mg PO Q8HR PRN #20 tab.rapdis 04/21/19 Unknown Rx Ibuprofen [Motrin] 600 mg PO Q8H PRN #20 tablet 05/14/19 Unknown Rx tiZANidine [Zanaflex 4mg TAB] 4 mg PO Q8H #15 tablet 05/14/19 Unknown Rx traMADol [Ultram] 50 mg PO Q6HR PRN #15 tablet 05/14/19 Unknown Rx ED Physical Exam - General Limitations: No Limitations General appearance: alert, in no apparent distress - Head Head exam: Present: atraumatic, normocephalic, normal inspection - Eye Eye exam: Present: normal appearance, PERRL, EOMI. Absent: scleral icterus, conjunctival injection, nystagmus Pupils: Present: normal accommodation - ENT ENT exam: Present: normal exam, normal orophraynx, mucous membranes moist. Absent: TM's normal bilaterally - Neck Neck exam: Present: normal inspection, full ROM. Absent: tenderness, meningismus, lymphadenopathy, thyromegaly - Respiratory Respiratory exam: Present: normal lung sounds bilaterally. Absent: respiratory distress, wheezes, rales, rhonchi, stridor, chest wall tenderness, accessory muscle use, decreased breath sounds, prolonged expiratory - Cardiovascular Cardiovascular Exam: Present: regular rate, normal rhythm, normal heart sounds. Absent: systolic murmur, diastolic murmur, rubs, gallop - GI/Abdominal GI/Abdominal exam: Present: soft, normal bowel sounds. Absent: distended, tenderness, guarding, hyperactive bowel sounds, organomegaly - Rectal Rectal exam: Present: deferred - Extremities Exam Extremities exam: Present: normal inspection, tenderness (palpable left wrist tenderness with active ROM), normal capillary refill. Absent: joint swelling - Back Exam Back exam: Present: normal inspection, full ROM. Absent: tenderness, CVA tenderness (R), CVA tenderness (L), muscle spasm, paraspinal tenderness, vertebral tenderness - Neurological Exam Neurological exam: Present: alert, oriented X3, CN II-XII intact, normal gait, reflexes normal - Psychiatric Psychiatric exam: Present: normal affect, normal mood - Skin Skin exam: Present: warm, dry, intact, normal color. Absent: rash ED Course Vital Signs 05/14/19 16:49 Temperature 97.6 F Pulse Rate 97 H Respiratory 16 Rate Blood Pressure 134/76 O2 Sat by Pulse 100 Oximetry - Reevaluation(s) Reevaluation #1: 05/15/19 03:01 Patient is alert and oriented x 3 and is in no acute distress. Patient was treated for pain. Left wrist x-ray shows no acute fractures. Patient's left wrist was splinted with Velcro splint and patient discharged home on pain medications and muscle relaxants. Patient was advised to follow up with his PCP in 5-7 days for reevaluation, or return to the ED immediately if symptoms get worse. 05/15/19 03:03 ED Medical Decision Making - Radiology Data Radiology results: report reviewed, image reviewed Left wrist x-ray: No acute fractures or subluxations - Medical Decision Making Patient is alert and oriented x 3 and is in no acute distress. Patient was treated for pain. Left wrist x-ray shows no acute fractures. Patient's left wrist was splinted with Velcro splint and patient discharged home on pain medications and muscle relaxants. Patient was advised to follow up with his PCP in 5-7 days for reevaluation, or return to the ED immediately if symptoms get worse. - Differential Diagnosis Wrist sprain, wrist fracture, wrist contusion Critical care attestation.: If time is entered above; I have spent that time in minutes in the direct care of this critically ill patient, excluding procedure time. ED Disposition Clinical Impression: Sprain of left wrist Qualifiers: Encounter type: initial encounter Qualified Code(s): S63.502A - Unspecified sprain of left wrist, initial encounter Muscle strain of left wrist Qualifiers: Encounter type: initial encounter Qualified Code(s): S66.912A - Strain of unspecified muscle, fascia and tendon at wrist and hand level, left hand, initial encounter Disposition: DC-01 TO HOME OR SELFCARE Is pt being admited?: No Does the pt Need Aspirin: No Condition: Stable Instructions: Wrist Injury (ED), Muscle Strain (ED), Wrist Sprain (ED) Additional Instructions: Take medications with food, drink plenty of fluids, and follow up with your Primary Care Physician as advised. Return to the ED immediately if symptoms get worse Prescriptions: Ibuprofen [Motrin] 600 mg PO Q8H PRN #20 tablet PRN Reason: Pain traMADol [Ultram] 50 mg PO Q6HR PRN #15 tablet PRN Reason: Pain tiZANidine [Zanaflex 4mg TAB] 4 mg PO Q8H #15 tablet Referrals: SARAH SOLITARIO MD [Primary Care Provider] - 3-5 Days Forms: Work/School Release Form(ED) Time of Disposition: 19:28 Print Language: NAMIBIAN
== END 2019-05-14 19:41 | disposition home or self-care (01) ==
LOC: ED 16:01
DX: S66.912A Strain of unspecified muscle, fascia and tendon at wrist and hand level, left hand, initial encounter (principal); F17.200 Nicotine dependence, unspecified, uncomplicated; Z88.1 Allergy status to other antibiotic agents; Z79.899 Other long term (current) drug therapy; X58.XXXA Exposure to other specified factors, initial encounter; Y93.89 Activity, other specified; Y92.89 Other specified places as the place of occurrence of the external cause; Y99.8 Other external cause status